=== PATIENT | female | born 1985 | race Caucasian/White ===

== ENCOUNTER 2020-11-02 06:57 | Outpatient (CLI) | payer OTHER, SELFPAY ==
--- NOTE | ~2020-11-02 | MR_ITS ---
EXAMINATION: MR brain/brain stem wo con DATE: 11/02/2020 07:43 INDICATION: Migraine headache. TECHNIQUE: Magnetic resonance imaging (MRI) of the brain and brainstem was performed without intraven ous contrast. Sequences included sagittal and axial T1-weighted FSE, axial diffusion-weighted FS EPI, axial T2*-weighted GRE, axial T2-weighted FLAIR Propeller, and axial T2-weighted Propeller. Apparent diffusion coefficient (ADC) maps were created. COMPARISON: None. FINDINGS: There is no intracranial hemorrhage, acute infarction, or abnormal intracranial mass lesion . The ventricles are normal in size. The paranasal sinuses are clear. The orbits are normal. The mast oid air cells are normal. IMPRESSION: 1. Normal brain. Reviewed, dictated and finalized at location A. IMPRESSION: 1. Normal brain.
== END 2020-11-02 06:58 | disposition home or self-care (01) ==
LOC: CHSIMG 06:59
PROVIDERS: PCP Internal Medicine; Visit Provider Internal Medicine
DX: G43.909 Migraine, unspecified, not intractable, without status migrainosus (principal)
CPT/HCPCS: 70551

== ENCOUNTER 2021-04-19 11:13 | Emergency (ER) | payer OTHER, SELFPAY ==
--- NOTE | ~2021-04-19 | XR_ITS ---
EXAMINATION: XR chest 2V DATE: 04/19/2021 11:48 INDICATION: Centralized chest pain. Syncopal episode one day prior. TECHNIQUE: PA and lateral views of the chest were obtained. COMPARISON: None FINDINGS: The lungs are clear with no focal airspace opacities, pulmonary edema, pleural effusion or pneumothor ax. The cardiomediastinal silhouette is normal. Visualized bones and soft tissues are unremarkable. IMPRESSION: 1. No acute cardiopulmonary disease. Reviewed, dictated and finalized at location A.
--- NOTE | 2021-04-19 11:22 | ECG_ITS ---
Measurements Intervals [place] Rate: 63 P: 62 [place]: 138 QRS: 66 QRSD: 89 T: 45 QT: 391 QTc: 402 Interpretive Statements SINUS RHYTHM NORMAL ECG Electronically Signed On 04-19-2021 11:38:47 CDT by Cb Catalan D.O.
[2021-04-19 11:23] VITALS: BP 115/90; PULSE 71; RESP 16; TEMP 36.7; O2SAT 100
[2021-04-19 11:35] VITALS: PULSE 72
--- NOTE | 2021-04-19 11:47 | ED.CHESTPAIN ---
HPI - Chest Pain General Chief Complaint: Chest Pain Stated Complaint: chest pain Time Seen by Provider: 04/19/21 11:22 History of Present Illness HPI narrative: Patient is a 36-year-old female who presents ER with reports of chest pain. Symptoms began yesterday while driving her home from the hospital. She felt tightness in her chest and she was diaphoretic. She reports she did not feel like she could see him. She laid down for several hours afterwards and symptoms improved but she still has some persistent chest discomfort. Denies fevers or chills or sweats. No difficulty breathing. No exertional chest discomfort however when she is doing so photocopy in today she felt like it was increasing. No personal history of coronary history. Has a grandfather who had heart disease in his 80s. Patient also reports she had some diarrhea early yesterday but was not having any abdominal discomfort and has no symptoms consistent with acid reflux. Related Data Home Medications Medication Instructions Recorded Confirmed ubrogepant [Ubrelvy] mg 04/19/21 Allergies Allergy/AdvReac Type Severity Reaction Status Date / Time trimethoprim Allergy Unknown Vomiting Verified 04/19/21 11:36 Sulfa (Sulfonamide AdvReac Intermediate VOMITING Verified 04/19/21 12:07 Antibiotics) sulfamethoxazole AdvReac Intermediate VOMITING Verified 04/19/21 12:07 Review of Systems Review of Systems: All systems reviewed & are unremarkable except as noted in HPI and below Constitutional: Constitutional: Denies chills, Denies fever(s) and Denies weakness Comments: Sweats ENT: Denies nasal congestion and Denies sore throat Cardiovascular: Cardiovascular: Reports chest pain, Denies rapid heart rate and Denies radiating jaw, neck or arm pain Respiratory: Respiratory: Denies cough, Denies dyspnea and Denies wheezing Gastrointestinal: Gastrointestinal: Denies abdominal pain, Reports diarrhea, Denies nausea and Denies vomiting PMF Past Medical History Medical History (Updated 04/19/21 @ 14:15 by Domenic Gold MD) Healthy female adult Surgical History Surgical History (Updated 04/19/21 @ 11:55 by Domenic Gold MD) No history of previous surgery Family History Family History (Updated 03/04/19 @ 09:32 by DOCTOR UNKNOWN) Other Family history of arthritis Family history of malignant neoplasm Hypertension Social History Social History Smoking status: Never smoker Alcohol intake: current Exam Narrative: GENERAL: Well-appearing, well-nourished, and in no acute distress. HEAD: Normocephalic, atraumatic. EYES/ears: PERRL and EOMI. TMs normal bilaterally. CHEST: Clear to auscultation. No respiratory distress. HEART: Regular rate and rhythm. Normal peripheral pulses. ABDOMEN: Soft, nontender, nondistended. EXTREMITIES: Normal range of motion. No edema. SKIN: Warm, dry, no rash. NEURO: Alert and oriented x3. PSYCH: Normal mood and affect. Course Course Emergency Course: Patient reports improvement with Toradol. Informed of results. Troponin negative after 24 hours of chest discomfort. [place] appropriate for follow-up with PCP. Discussed possible need for Holter monitor if symptoms recur. Vital Signs Vital signs: Vital Signs Temperature 98.0 F 04/19/21 11:23 Pulse Rate 71 04/19/21 11:23 Respiratory Rate 16 04/19/21 11:23 Blood Pressure 115/90 04/19/21 11:23 Pulse Oximetry 100 04/19/21 11:23 Temperature 98.0 F 04/19/21 11:23 Pulse Rate 72 04/19/21 11:35 Respiratory Rate 16 04/19/21 11:23 Blood Pressure 115/90 04/19/21 11:23 Pulse Oximetry 100 04/19/21 11:23 MDM - Chest Pain Lab Data Result diagrams: 04/19/21 11:40 04/19/21 11:40 Labs: Lab Results 04/19/21 04/19/21 04/19/21 Range/Units 11:40 11:40 11:40 WBC 6.0 (4.5-10.0) K/mm3 RBC 4.48 (4.2-5.4) M/mm3 Hgb 13.6 (12.0-15.0) g/dL Hct 40.8 (37.0-47.0) % MCV 91.1
[2021-04-19 11:48] LABS: Basophils Absolute Auto 0.1 K/mm3 (0.0-0.1); Basophils Percent Auto 0.8 % (0.2-1.2); Eosinophils Absolute Auto 0.1 K/mm3 (0-0.3); Eosinophils Percent Auto 1.8 % (0-4.4); Hematocrit 40.8 % (37.0-47.0); Hemoglobin 13.6 g/dL (12.0-15.0); Lymphocytes Absolute Auto 1.73 K/mm3 (0.9-3.2); Lymphocytes Percent Auto 28.8 % (18.3-44.2); Mean Corpuscular HGB Conc 33.3 g/dl (32-36); Mean Corpuscular Hemoglobin 30.4 pg (26-34); Mean Corpuscular Volume 91.1 fl (80-100); Mean Platelet Volume 12.1 fl (7.4-10.4); Monocytes Absolute Auto 0.5 K/mm3 (0.1-0.6); Monocytes Percent Auto 8.7 % (2.6-8.5); Neutrophils Absolute Auto 3.6 K/mm3 (1.3-6.7); Neutrophils Percent Auto 59.9 % (45.5-73.1); Platelet Count Result 232 k/mm3 (150-375); Red Blood Count 4.48 M/mm3 (4.2-5.4); Red Cell Distribution Width 12.3 % (11.5-14.5)
[2021-04-19 12:02] LABS: Prothrombin Time 12.6 Seconds (11.1-14.7)
[2021-04-19 12:03] LABS: Partial Thromboplastin Time 33.7 SECONDS (22.3-36.8)
[2021-04-19] MEDS: KETOROLAC 15 MG/ML VIAL (*BKC) IV PUSH (12:13)
[2021-04-19 12:17] LABS: Anion Gap 7 mmol/L (8-16); Blood Urea Nitrogen 14 mg/dL (7-17); Calcium 9.4 mg/dL (8.4-10.2); Carbon Dioxide 31 mmol/L (22-30); Chloride 102 mmol/L (98-107); Estimated CRCL calculation 59 ml/min; Estimated Glomerular Filt Rate > 60; Glucose 88 mg/dL (65-110); Sodium 140 mmol/L (137-145)
[2021-04-19 12:29] LABS: Troponin I < 0.012 ng/mL (0.000-0.034)
[2021-04-19 14:29] VITALS: BP 95/62; PULSE 70; RESP 16; O2SAT 100
== END 2021-04-19 14:33 | disposition home or self-care (01) ==
PROVIDERS: Emergency Medicine; Emergency Provider Emergency Medicine; PCP Internal Medicine
DX: R07.89 Other chest pain (principal)
CPT/HCPCS: 36415; 71046; 80048; 84484; 85025; 85610; 85730; 93005; 96374; 99284; J1885

== ENCOUNTER → 2021-06-30 09:37 | Outpatient (CLI) | payer OTHER, SELFPAY ==
--- NOTE | ~2021-06-30 | US_ITS ---
EXAMINATION: US transvaginal EXAM DATE: 06/30/2021 09:55 INDICATION: Pelvic and perineal pain TECHNIQUE: Pelvic transvaginal sonogram was performed. There are multiple grayscale and Doppler lara ges available for interpretation. There is no prior study for comparison. FINDINGS: Uterus measures 8.5 x 4.2 x 4.6 cm, and is morphologically normal. Endometrial stripe jeremie sures 9 mm, within normal limits. There is no free pelvic fluid. Right adnexa: The ovary measures 2.9 x 2.0 x 2.0 cm and is morphologically normal. Ovarian vascular f low confirmed. Left adnexa: The ovary measures 1.9 x 1.5 x 2.2 cm and is morphologically normal. Ovarian vascular fl ow confirmed. Prominent periadnexal veins, can be seen with pelvic congestion syndrome. IMPRESSION: 1. Prominent left periadnexal veins, possible pelvic congestion syndrome. Reviewed, dictated and finalized at location B. 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
== END ==
PROVIDERS: Visit Provider Nurse Practitioner
DX: R10.2 Pelvic and perineal pain (principal)
CPT/HCPCS: 76830

== ENCOUNTER 2024-01-02 08:18 | Outpatient (CLI) | payer OTHER, SELFPAY ==
--- NOTE | ~2024-01-02 | MM_ITS ---
EXAMINATION: MM screening arvin BI w adrián HISTORY: Screening mammogram TECHNIQUE: Craniocaudal and mediolateral oblique 3-D tomosynthesis images were obtained and synthetic 2-D images were generated. CAD analysis was submitted and interpreted. COMPARISON: No prior mammogram is available for comparison at this institution. BREAST PARENCHYMAL COMPOSITION:Not Dense. There are scattered areas of fibroglandular density. FINDINGS: No suspicious mass, calcification, or architectural distortion are identified in either estelle ast to suggest malignancy. There has been no suspicious interval change. IMPRESSION: No mammographic evidence of malignancy. Recommend routine screening mammography in one year. BI-RADS Category 1: Negative Reviewed, dictated and finalized at location .
== END 2024-01-02 08:19 | disposition home or self-care (01) ==
LOC: CHSIMG 08:19
PROVIDERS: PCP Internal Medicine; Visit Provider Internal Medicine
DX: Z12.31 Encounter for screening mammogram for malignant neoplasm of breast (principal)
CPT/HCPCS: 77063; 77067

== ENCOUNTER 2024-04-13 11:22 | Emergency (ER) | payer OTHER, SELFPAY ==
--- NOTE | ~2024-04-13 | XR_ITS ---
CHEST RADIOGRAPH, PA AND LATERAL CLINICAL HISTORY: cough, fever, 5 days . COMPARISON: 04/19/2021 TECHNIQUE: PA and lateral views of the chest. FINDINGS The cardiomediastinal silhouette is unremarkable. Opacification of the left upper lobe, consistent with early infiltrate. Remainder of the lungs are clear. Visualized osseous structures and soft tissues are unremarkable. IMPRESSION: Left upper lobe infiltrate. Reviewed, dictated and finalized at location A. IMPRESSION: Left upper lobe infiltrate.
--- NOTE | 2024-04-13 11:26 | ED.URI ---
HPI - URI/Sore Throat General Chief Complaint: Upper Respiratory Infection Stated Complaint: COUGH/SOB/CHEST CONGESTION Source: patient and RN notes reviewed Mode of arrival: ambulatory Limitations: no limitations History of Present Illness HPI Narrative: Patient is a 39-year-old female who presents to the [facility] with complaints of cough, chest congestion, and fever since Saturday night. Patient reports a frequent nonproductive cough, chest congestion, and intermittent shortness of breath. She states that she has had a fever as high as 101? F at home. She states that she had a tele health visit on Saturday and was diagnosed with probable pneumonia. She was prescribed albuterol, cough medication, and doxycycline. She states that she has been taking these medications without any improvement of her symptoms. Related Data Home Medications Medication Instructions Recorded Confirmed ubrogepant 50 mg tablet (Ubrelvy) 5 mg PO DAILY 04/19/21 04/13/24 albuterol sulfate 90 mcg/actuation 90 mcg inhalation Q4H 04/13/24 04/13/24 aerosol inhaler doxycycline hyclate 100 mg capsule 100 mg PO BID 04/13/24 04/13/24 promethazine-DM 6.25 mg-15 mg/5 mL 5 ml PO Q6H 04/13/24 04/13/24 oral syrup Allergies Allergy/AdvReac Type Severity Reaction Status Date / Time trimethoprim Allergy Unknown Vomiting Verified 04/13/24 11:37 Sulfa (Sulfonamide AdvReac Intermediate VOMITING Verified 04/13/24 11:37 Antibiotics) sulfamethoxazole AdvReac Intermediate VOMITING Verified 04/13/24 11:37 Review of Systems Review of Systems: CONSTITUTIONAL: Reports fever, chills, and sweats. EYES: Denies visual changes, redness, or discharge. ENT: Denies otalgia and sore throat. Reports congestion. CARDIOVASCULAR: Denies chest pain, palpitations, or edema. RESPIRATORY: Reports cough and dyspnea. GASTROINTESTINAL: Denies abdominal pain, nausea, vomiting, or diarrhea. GENITOURINARY: Denies dysuria or hematuria. SKIN: Denies rash or itching. MUSCULOSKELETAL: Denies back pain, joint pain, or myalgia. NEUROLOGIC: Denies headache, numbness, or weakness. Pertinent positives per HPI. [facility] Past Medical History Medical History Healthy female adult Surgical History Surgical History No history of previous surgery Family History Family History Other Family history of arthritis Family history of malignant neoplasm Hypertension Social History Social History Smoking status: Never smoker Alcohol intake: current Comments At the time of my signature, I reviewed and agree with the nursing past medical, surgical, social, and family history. There is no relevant family history pertinent to the patient complaint. Exam Narrative: GENERAL: This is a well-nourished, well-developed patient, in no apparent distress. HEAD: normocephalic, atraumatic. EYES: Sclera clear/white. Vision is grossly intact. EARS: External ears normal. Hearing grossly intact. NOSE: External nose normal with no obvious nasal discharge, nares without redness, no rhinorrhea. THROAT: Mucous membranes moist, posterior pharynx clear. NECK: Neck supple, non-tender without lymphadenopathy, masses or thyromegaly. CARDIOVASCULAR: Regular rate and rhythm without murmurs, gallops, or rubs. RESPIRATORY: Course to auscultation. Breath sounds equal bilaterally. GASTROINTESTINAL: Abdomen soft, non-tender, nondistended. Bowel sounds are active. No hepato-splenomegaly, or palpable masses. No guarding. SKIN: warm, intact with no suspicious lesions or rash, good texture and turgor. NEURO: awake, alert, and oriented to person, place and time. There were no obvious focal neurologic abnormalities. Course Course Level of Care: Express Care Visit Vital Signs Vital s
[2024-04-13 11:36] VITALS: BP 111/60; PULSE 92; RESP 16; TEMP 37.8; O2SAT 98
[2024-04-13 11:39] VITALS: BP 111/60; PULSE 92; RESP 16; TEMP 37.8; O2SAT 98
== END 2024-04-13 12:32 | disposition home or self-care (01) ==
PROVIDERS: Emergency Provider Nurse Practitioner; PCP Internal Medicine
DX: J18.1 Lobar pneumonia, unspecified organism (principal)
CPT/HCPCS: 71046; 99213; G0463

== ENCOUNTER 2025-01-04 07:37 | Outpatient (CLI) | payer OTHER, SELFPAY ==
--- NOTE | ~2025-01-04 | MM_ITS ---
EXAMINATION: MM screening arvin BI w adrián HISTORY: Screening mammogram TECHNIQUE: Craniocaudal and mediolateral oblique 3-D tomosynthesis images were obtained and synthetic 2-D images were generated. CAD analysis was submitted and interpreted. COMPARISON: 01/02/2024 BREAST PARENCHYMAL COMPOSITION:Not Dense. There are scattered areas of fibroglandular density. FINDINGS: No suspicious mass, calcification, or architectural distortion are identified in either estelle ast to suggest malignancy. There has been no suspicious interval change. IMPRESSION: No mammographic evidence of malignancy. Recommend routine screening mammography in one year. BI-RADS Category 1: Negative Reviewed, dictated and finalized at location .
== END 2025-01-04 07:38 | disposition home or self-care (01) ==
PROVIDERS: PCP Internal Medicine; Visit Provider Clinical Nurse Specialist
DX: Z12.31 Encounter for screening mammogram for malignant neoplasm of breast (principal)
CPT/HCPCS: 77063; 77067

== ENCOUNTER 2025-04-19 09:29 | Outpatient (CLI) | payer OTHER, SELFPAY ==
--- NOTE | ~2025-04-19 | XR_ITS ---
EXAMINATION: XR shoulder LT min 2V, 04/19/2025 9:33 CDT HISTORY: Pain in left shoulder x 1 year, no inj, no surgery COMPARISON: No comparisons available. Findings: No acute fracture or malalignment. No significant degenerative changes. Soft tissues unremarkable. Impression: No acute fracture or malalignment. Reviewed, dictated and finalized at location P. Impression: No acute fracture or malalignment.
== END 2025-04-19 09:30 | disposition home or self-care (01) ==
LOC: GOSHIMG 09:30
PROVIDERS: PCP Clinical Nurse Specialist; Visit Provider Clinical Nurse Specialist
DX: M25.512 Pain in left shoulder (principal)
CPT/HCPCS: 73030

== ENCOUNTER 2025-05-14 13:43 | Outpatient (CLI) | payer OTHER, SELFPAY ==
--- NOTE | ~2025-05-14 | MR_ITS ---
EXAMINATION: MR shoulder LT wo con DATE: 05/14/2025 14:17 INDICATION: Left shoulder pain TECHNIQUE: Magnetic resonance imaging (MRI) of the left shoulder was performed without intravenous contrast. Sequences included axial PD-weighted FS FSE, coronal oblique PD-weighted FS FSE, coronal oblique T2-weighted FS FSE, sagittal PD-weighted FS FSE, and sagittal T1-weighted SE. COMPARISON: None. FINDINGS: Coracoacromial arch: The acromion undersurface is minimally curved in morphology (type I-II). The coracoacromial ligament is normal. Acromioclavicular joint is normal. Rotator cuff: Moderate tendinopathy without discrete tear at the conjoined portion of the supraspinatus and infraspinatus tendons. Subscapularis and teres minor tendons are normal. Normal rotator cuff muscle bulk and signal. Biceps tendon, glenoid labrum and glenohumeral cartilage: Long head of the biceps tendon is normal. Glenoid labrum is normal. Glenohumeral cartilage is normal. Fluid: Physiologic amount of fluid in the glenohumeral joint and biceps tendon sheath. No loose osteochondral bodies. Small amount of fluid in the subacromial/subdeltoid bursa consistent with mild bursitis. Bones: Normal marrow signal with no edema, fracture or abnormal marrow replacing process. IMPRESSION: 1. Moderate tendinopathy without discrete tear at the conjoined portion of the supraspinatus and infraspinatus tendons. 2. Mild subacromial/subdeltoid bursitis. Reviewed, dictated and finalized at location A. 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
== END 2025-05-14 13:44 | disposition home or self-care (01) ==
PROVIDERS: PCP Clinical Nurse Specialist; Visit Provider Clinical Nurse Specialist
DX: M67.814 Other specified disorders of tendon, left shoulder (principal); M75.52 Bursitis of left shoulder; G89.29 Other chronic pain
CPT/HCPCS: 73221

== ENCOUNTER 2025-05-31 08:16 | Outpatient (RCR) | payer OTHER, SELFPAY ==
--- NOTE | 2025-05-31 07:54 | OPREHPOC ---
Outpatient Therapy Plan of Care This is a Multidisciplinary Plan of Care that may contain components documented by all disciplines (PT, OT, and ST.) PT Problem 1 PT Problem #1 Knowledge Deficit PT Goal 1 Goal / Goal Update Independent and compliant with HEP. Target Visit 2 PT Problem 2 PT Problem #2 Pain PT Goal 1 Goal / Goal Update Pt to report no worse than 5/10 L shoulder pain. Target Visit 12 PT Problem 3 PT Problem #3 Impaired Strength PT Goal 1 Goal / Goal Update Pt to improve gross bilat shoulder strength to 5/5 . Target Visit 12 PT Problem 4 PT Problem #4 Impaired Functional Mobility PT Goal 1 Goal / Goal Update Pt to report 0% perceived disability on Quick DASH . Pt to report ability to pull up her pants and put on a bra normally. Pt to lift 10# from the ground with her L arm without difficulty. Target Visit 12
--- NOTE | 2025-05-31 07:54 | PTOPEVAL1 ---
Assessment and note entered by Nidia Reyes, PT Evaluation Information Assessment Status Evaluation ICD-10 Condition Codes (PT) Pain in left shoulder M25.512 Other ICD-10 Condition Codes ( M75.82 PT) Onset 02/06/24 Subjective Information Pt reports her shoulder started hurting without MARLENY in February of 2024. She states the did get a cortisone shot 5 days ago and notes great improvement in her pain severity at rest. She does still note excruciating pain when lifting grocery bags and pulling up her pants. She also states sleeping is the worst, and she states any time she shifts or moves in bed she gets woken up due to her pain and she often has to use her R arm to pull and help position her arm. 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 Pt reports she got an MRI of her L shoulder and has discussed the findings with her doctor. Reported Pain Level Pain Score 0: Self Report Assessment PT Clinical Summary Mrs. Colvin presents to skilled PT evaluation for L shoulder pain without MARLENY and recent MRI showing RTC tendinopathy and subacromial bursitis. She presents today with grossly normal shoulder AROM but demonstrates moderate strength deficits in the R shoulder as well as pain with functional activities such as dressing and lifting. She will benefit from skilled PT intervention to address these deficits to improve performance of functional tasks with less pain. Plan of Care Interventions Electrical Stimulation,Gait Training,Hot Pack/Cold Pack,Manual Therapy,Neuro Re-education,Patient/ Caregiver Education,Therapeutic Activities, Therapeutic Exercise,Self-Care/Home Management Other Interventions Dry needling PT Services Indicated Yes Treatment Frequency and 2x/week for 12 visits Duration These treatments will address the objective and functional deficits as defined above. The patient will be advanced safely and appropriately in order for the patient to progress towards his/her prior level of function. Additional exercises will be introduced and as well as a comprehensive home exercise program upon discharge, if needed, ?to ensure carryover of functional gains achieved in the clinic. This treatment plan has been reviewed and agreement upon by the patient.
--- NOTE | 2025-06-24 17:32 | PTOPDC ---
Assessment and note entered by Nidia Reyes, PT Evaluation Information Assessment Status Discharge ICD-10 Condition Codes (PT) Pain in left shoulder M25.512 Other ICD-10 Condition Codes ( M75.82 PT) Onset 02/06/24 Subjective Information Pt reports her shoulder feels kind of stiff this morning but it isn't painful like it used to be and she feels like she can be normal again. She is no longer waking up at night due to pain and has not needed to take any pain meds. She denies difficulty putting on clothing including pulling up her pants or putting on a bra. Reported Pain Level Pain Score 0: Self Report Assessment PT Clinical Summary Mrs. Colvin has attended 8 skilled PT visits addressing L shoulder pain. She has made good improvements in her shoulder strength and functional use of the L arm with PT. She no longer experiences pain with daily activities and is able to perform tasks such as lifting, donning a bra, and pulling up pants without any difficulty. She also demonstrates improved L shoulder strength and Quick DASH score. She will be discharged from skilled PT this date with updated HEP to continue at home. Plan of Care PT Services Indicated No
== END 2025-06-23 20:00 | disposition home or self-care (01) ==
LOC: CHSPT 08:16
PROVIDERS: Visit Provider Orthopaedic Surgery
DX: M75.82 Other shoulder lesions, left shoulder (principal); M25.512 Pain in left shoulder
CPT/HCPCS: 97110; 97112; 97140; 97161; 97530